=== PATIENT | female | born 1965 | race Caucasian/White ===

== ENCOUNTER 2017-11-25 09:01 | Emergency (ER) | payer BC, OTHER ==
[~2017-11-25] VITALS: Ht 162.6 cm; Wt 77.1 kg
[2017-11-25] MEDS ORDERED: ALBUTEROL/IPRATROPIUM 3 ML NEB NEB ONE (09:45)
[2017-11-25] MEDS ORDERED: DEXAMETHASONE 4 MG TAB PO SCH (09:45)
[2017-11-25 12:01] VITALS: BP 128/60
== END 2017-11-25 11:05 | disposition home or self-care (01) ==
LOC: FSED 09:01
DX: R05 Cough (principal); R50.9 Fever, unspecified; J20.9 Acute bronchitis, unspecified; I10 Essential (primary) hypertension; E03.9 Hypothyroidism, unspecified
CPT/HCPCS: 87400; 99283